=== PATIENT | female | born 1945 | race Caucasian/White ===

== ENCOUNTER 2017-07-20 10:24 | Outpatient (CLI) | payer MEDICARE, MEDICAID ==
--- NOTE | 2017-07-20 14:27 | MRI ---
BRAIN MRI WITH AND WITHOUT CONTRAST: 07/20/2017 HISTORY: Left hearing loss. Pain. COMPARISON: None. TECHNIQUE: Multiplanar, multisequence MR imaging of the brain obtained with and without contrast, using an inter nal auditory canal protocol. FINDINGS: The diffusion weighted imaging demonstrates no evidence for acute infarction. There is mucosal sinus disease involving the alveolar recess of the maxillary sinus on the right. Imaged paranasal sinuses are otherwise unremarkable. Regional bone marrow signal intensity appears within normal limits. No midline shift, mass effect, or ventricular enlargement is seen. Numerous foci of increased T2 and FLAIR signal are noted within the periventricular, deep, and subcor tical white matter, evidence of small vessel disease. There is abnormal crescentic increased FLAIR signal within the posterior/posteromedial aspect of the globe. Of note, the globe has demonstrated abnormal density on CT examinations dating back to 2012. Clinical correlation is required. This could be related to prior ocular injury or prior retinal det achment. Arterial flow voids at the axial level of the skull base appear unremarkable on the T2 weighted imagi ng. Thin section T2-weighted imaging through the skull base demonstrates normal T2 signal intensity in th e region of the CP angle bilaterally. The internal auditory canal, cochlear, vestibule, and semicirc ular canals demonstrate normal T2 signal bilaterally. The mastoid air cells are grossly unremarkable, aside from a few inferior opacified mastoid air cells on the left. Thin section post contrast imaging demonstrates no abnormal enhancement in the region of the cerebell opontine angle, internal auditory canal, cochlea, vestibule, or semicircular canals on either side. No abnormal intraaxial enhancement seen. IMPRESSION: No acute findings. There is an abnormal appearance of the right globe, chronic in nature. Clinical correlation is required. There is evidence of small vessel disease with no acute infarction noted. POS: [facility]
== END 2017-07-20 10:25 | disposition home or self-care (01) ==
LOC: MRI 10:24
PROVIDERS: ATTEND Otolaryngology Plastic Surgery within the Head & Neck
DX: R27.0 Ataxia, unspecified (principal); I67.9 Cerebrovascular disease, unspecified
CPT/HCPCS: 70553

== ENCOUNTER 2017-08-08 09:50 | Outpatient (CLI) | payer MEDICARE, MEDICAID | END 2017-08-08 09:51 | disposition home or self-care (01) | LOC: MAMMO 09:50 | PROVIDERS: ATTEND Internal Medicine | DX: Z12.31 Encounter for screening mammogram for malignant neoplasm of breast (principal) | CPT/HCPCS: 77067; G0202 ==

== ENCOUNTER 2017-09-08 12:31 | Inpatient (IN) | payer MEDICARE, MEDICAID ==
--- NOTE | 2017-09-08 13:24 | RAD ---
PORTABLE CHEST 1 VIEW: DATE: 09/08/17. TIME: 12:54 p.m. HISTORY: Syncope. FINDINGS: The heart size is enlarged. The aorta is tortuous. No lobar consolidation, pneumothoraces, jeanette pu lmonary edema, or pleural effusions are seen. POS: [facility]
[2017-09-08 13:26] LABS: #Eosinphils 0.4 thou/uL (0.0-0.7); #Lymphocytes 1.5 thou/uL (1.20-3.40); #Monocytes 0.6 thou/uL (0.11-0.59); #Neutrophils 4.3 thou/uL (1.40-6.50); %Basophils 0.7 % (0.0-1.0); %Eosinophils 6.3 % (0.0-10.0); %Lymphocytes 22.1 % (21.0-51.0); %Monocytes 8.5 % (0.0-10.0); %Neutrophils 62.4 % (42.0-75.0); Hemoglobin 12.9 g/dL (12.0-16.0); Mean Corpuscular HGB CONC 32.6 g/dL (32.0-36.0); Mean Corpuscular Hemoglobin 32.5 pg (27.0-31.0); Mean Corpuscular Volume 99.7 fl (81.0-99.0); Mean Platelet Volume 8.1 fL (7.4-10.4); Platelet Count 215 thou/uL (130-400); RBC Distribution Width 11.6 % (11.5-14.5); Red Blood Cell (RBC) Count 3.96 mill/uL (4.20-5.40); White Blood Cell (WBC) Count 6.8 thou/uL (4.8-10.8)
[2017-09-08 13:54] LABS: CKMB 1.1 ng/mL (0-6.6); Troponin I Less than 0.010 ng/mL (< 0.028)
[2017-09-08 13:59] LABS: ALT (SGPT) 16 U/L (8-55); AST (SGOT) 22 U/L (5-34); Albumin 3.7 g/dL (3.4-4.8); Alkaline Phosphatase 75 U/L (40-150); Anion Gap 12 mmol/L (10-20); BUN (Urea Nitrogen) 22 mg/dL (9.8-20.1); Bilirubin, Total 0.4 mg/dL (0.2-1.2); CK (CPK) 41 U/L (29-168); Calc. Creatinine Clearance 0 mL/min (70-130); Calcium 9.5 mg/dL (7.8-10.44); Carbon Dioxide 29 mmol/L (23-31); Chloride 103 mmol/L (98-107); Estimated GFR-MDRD 46; Globulin 3.4 g/dL (2.4-3.5); Glucose 106 mg/dL (83-110); Potassium 4.3 mmol/L (3.5-5.1); Protein, Total 7.1 g/dL (6.0-8.3); Sodium 140 mmol/L (136-145)
[2017-09-08 14:01] LABS: Bilirubin Small (Negative); Blood, Urine Negative (Negative); Clarity CLEAR (Clear); Glucose, Urine (Dipstick) Negative (Negative); Leukocyte Small (Negative); Nitrite Negative (Negative); Protein, Urine (Dipstick) Negative (Neg-Trace); Specific Gravity, Urine 1.026 (1.002-1.036)
[2017-09-08 14:03] LABS: Bacteria/HPF None Seen HPF (None Seen); Hyaline Casts/LPF 4-6 HYALINE CAST LPF (0-3 Hyaline); RBC/HPF 0-3 HPF (0-3); Squamous Epithelial 0-3 HPF (0-3); WBC/HPF 0-3 HPF (0-3)
[2017-09-08 14:15] LABS: Crystals/HPF None Seen HPF (Negative)
[2017-09-08] MEDS ORDERED: Ondansetron HCl/PF 4 MG/2 ML Vial IVP PRN (16:24)
[2017-09-08] MEDS ORDERED: HumaLOG 300 UNITS/3 ML VIAL SC PRN (16:24)
[2017-09-08] MEDS ORDERED: Acetaminophen 325 MG TAB PO PRN (16:24)
[2017-09-08] MEDS ORDERED: HYDROcodone/Acetaminophen 5/325 mg Tablet PO PRN (16:24)
[2017-09-08] MEDS ORDERED: Nitroglycerin 0.4 MG TAB (25 Tab Bottle) SL PRN (16:24)
[2017-09-08] MEDS ORDERED: Dextrose 50% Abboject 50 ML SYRINGE SLOW IVP PRN (16:24)
[2017-09-08] MEDS ORDERED: hydrALAZINE 20 MG/ML VIAL SLOW IVP PRN (16:24)
[2017-09-08] MEDS ORDERED: Dextrose 5% in Water 1,000 ML IV PRN (16:24)
[2017-09-08] MEDS ORDERED: Calcium Carbonate 500 MG ChewTAB PO PRN (16:24)
[2017-09-08] MEDS ORDERED: Benzonatate 100 MG CAP PO PRN (16:24)
[2017-09-08 16:44] VITALS: BMI 25.4
--- NOTE | 2017-09-08 17:09 | HP ---
CHIEF COMPLAINT: Syncopal episode. HISTORY OF PRESENT ILLNESS: This is a 72-year-old pleasant lady who was apparently in usual state of health when she was getting out of the car, felt dizzy and was feeling that she was going down. She had a sense of that she was going to black out. She yelled to her who caught her and she perez d passed out for a few seconds. She immediately gained her consciousness and she was brought to the hospital for further evaluation and treatment. Denies any nausea, vomiting, chest pain, diarrhea, or dysuria. Admits to some dizziness, but she says that she has got chronic dizziness because of the p roblems of the otolith in the ear. She had an MRI and is being followed up by the doctor as an outpa tient for the treatment of that as well. Right now, she denies any chest pain, shortness of breath, dizziness or palpitations. Of note, she also has enrolled into a study for C. diff and she gets her injection once in 3 months. She is enrolled about 9 months back and she is due for the third injecti on in about a week. Right now, she is going to be admitted for the evaluation and treatment of the s ymptomatic bradycardia as the heart rate was in the 40s when she came in. PAST MEDICAL HISTORY: Significant for some chronic diarrhea, diabetes mellitus, hypertension, atrial fibrillation. ALLERGIES: No known drug allergies. PAST SURGICAL HISTORY: Cholecystectomy and hysterectomy. SOCIAL HISTORY: Does not smoke, drink or do recreational drugs. MEDICATIONS: Family is going to bring the medication list. Please see MAR. FAMILY HISTORY: Negative for diabetes and hypertension. REVIEW OF SYSTEMS: Significant for bradycardia, syncopal episode. Otherwise, no fever, no chills, n o headache, no appetite, no latencies. No cough, no chest pain, diarrhea, dysuria or polyuria. No m jaylyn or mood changes. No neck pain. PHYSICAL EXAMINATION: VITAL SIGNS: Blood pressure is 109/61, pulse is 49, breathing comfortably on room air, afebrile. GENERAL: Patient is lying in bed in no apparent distress. HEENT: Atraumatic and normocephalic. Pupils equal, round, react to light. Extraocular movements in tact. Chronic changes in the right eye. She is blind in the right eye. NECK: No JVD. CHEST: Breath sounds. There are no rales or rhonchi. HEART: S1, S2 normal, bradycardic. ABDOMEN: Soft, obese. EXTREMITIES: No cyanosis, clubbing, edema. Distal pulses present. NEUROLOGIC: Alert, awake, oriented. No cranial deficits. No sensorimotor deficits. LABORATORY DATA: WBC count is 6.8, hemoglobin 12. Chest x-ray negative. Troponin 0.01, potassium 4 .3, creatinine 1.15. Chest x-ray negative. ASSESSMENT AND PLAN: 1. Symptomatic bradycardia giving rise to syncopal episode. We will review medications once the hus band brings it. We will put her on telemetry for now. We will consult Cardiology. We will trend tr oponins. 2. Diabetes mellitus. We will put her on insulin sliding scale. 3. Hypertension, p.r.n. hydralazine for now. 4. History of paroxysmal atrial fibrillation. We will monitor that this hospital stay. some vague history of chronic diarrhea. We will go over the research study she is enrolled into. I will work with Dr. Correia in further caring for the patient.
[2017-09-08 17:14] LABS: Troponin I Less than 0.010 ng/mL (< 0.028)
[2017-09-08] MEDS: Sodium Chloride 0.9% 1,000 ML IV SCH (17:33)
[2017-09-08 17:47] LABS: Bilirubin Negative (Negative); Blood, Urine Negative (Negative); Clarity CLEAR (Clear); Glucose, Urine (Dipstick) Negative (Negative); Leukocyte Small (Negative); Nitrite Negative (Negative); Protein, Urine (Dipstick) Negative (Neg-Trace); Specific Gravity, Urine 1.016 (1.002-1.036)
[2017-09-08 17:52] LABS: Bacteria/HPF None Seen HPF (None Seen); Hyaline Casts/LPF 0-3 HYALINE CAST LPF (0-3 Hyaline); RBC/HPF 0-3 HPF (0-3); Squamous Epithelial None Seen HPF (0-3); WBC/HPF 0-3 HPF (0-3)
[2017-09-08 19:42] LABS: Troponin I Less than 0.010 ng/mL (< 0.028)
--- NOTE | 2017-09-08 20:31 | CON ---
DATE OF CONSULTATION: 09/08/2017 REASON FOR CONSULTATION: Syncope. HISTORY OF PRESENT ILLNESS: Mrs. Louise is a very pleasant 72-year-old white female who comes to [facility] after a syncopal spell. She was walking into her doctor's office, Dr. Lopez and s he felt faint, she felt she was about to pass out and told her . Her was able to catc h her. She was out for about 2 or 3 seconds and then she regained her consciousness. She was fully awake after she had regained her consciousness. 911 was called and on their arrival, her heart was a bout 48. She was wide awake and asymptomatic. She was brought in, her heart rate has remained in [facility] mid 50s. She has a history of paroxysmal atrial fibrillation, sees a debt collector in [place] for t his, and she is on amiodarone and Eliquis for stroke prophylaxis. She states that she had this happe n about 2 years ago, she had a syncopal spell. She had another spell right about 2 months ago where she was presyncopal, but not completely passed out. PAST MEDICAL HISTORY: 1. Paroxysmal atrial fibrillation on Eliquis for stroke prophylaxis. 2. Chronic diarrhea. 3. Type 2 diabetes. 4. Hypertension. ALLERGIES: No known drug allergies. OUTPATIENT MEDICATIONS: 1. Aspirin 81 a day. 2. Tylenol #3 p.r.n. 3. Iron. 4. Amiodarone 100 mg every other day. 5. Vitamin D3. 6. Valsartan 320 mg a day. 7. Multivitamin. 8. Crestor 10 mg every day. 9. Eliquis 5 mg b.i.d. 10. Metformin 500 mg b.i.d. 11. Levothyroxine 88 mcg a day. 12. Nexium daily. ALLERGIES: No known drug allergies. SOCIAL HISTORY: No alcohol, tobacco or drugs. FAMILY HISTORY: Noncontributory. REVIEW OF SYSTEMS: The 12-point review of systems was negative, unless stated in the history of pres ent illness. PHYSICAL EXAMINATION: VITAL SIGNS: Temperature 97.8, pulse 64, respiration rate 20, satting 93% on room air, blood pressur e 119/50 supine, 122/63 sitting, and 113/64 standing. She is not orthostatic. GENERAL: Awake, alert, oriented x3, in no distress. HEENT: Normocephalic and atraumatic. She has a lesion on her right eye, is blind on it. NECK: Supple, no JVD. LUNGS: Lungs are clear. CARDIOVASCULAR: S1, S2, no S3 or S4, no murmurs or rubs. ABDOMEN: Soft, positive bowel sounds. EXTREMITIES: No edema. SKIN: Warm and dry. LABORATORY WORK: Reviewed. UA was unremarkable. Chemistry was unremarkable except for BUN of 22, c reatinine 1.15. Troponin is negative x2. Hematology was unremarkable as well. EKG was reviewed, sinus bradycardia with heart rate in the mid 50s. Telemetry was reviewed, sinus bradycardia, heart rate in the mid 50s to low 60s. ASSESSMENT AND PLAN: 1. Syncope: May have been related to bradycardia and she may have tachybrady syndrome at this time. I have no clear evidence of the reason why she passed out. We will plan on stopping her amiodarone . She is only taking it 100 every other day which tells me that she has had problems with probably b radycardia in the past. She will need a home monitor and if her atrial fibrillation burden is high a nd/or she is having bradycardia, then she will need a pacemaker placed. At this time, she is on Eliq uis, so I will hold off on doing a LINQ implantation. We may be able to find something on a 30-day r ecorder; she had it last about 2 months ago. I will recommend to stop the amiodarone today. Continu e other medications. Continue Eliquis. If she were to pass out one more time in the next few weeks to months, she would have to stop the Eliquis that she is a fall risk. Echocardiogram will be done and if this is normal, she will be discharged home to follow up with her primary debt collector. Thank you for letting us participate in the care of your patient.
[2017-09-09 06:03] LABS: #Basophils 0.1 thou/uL (0.0-0.2); #Eosinphils 0.4 thou/uL (0.0-0.7); #Lymphocytes 1.8 thou/uL (1.20-3.40); #Monocytes 0.6 thou/uL (0.11-0.59); #Neutrophils 4.3 thou/uL (1.40-6.50); %Basophils 0.9 % (0.0-1.0); %Eosinophils 6.2 % (0.0-10.0); %Lymphocytes 24.8 % (21.0-51.0); %Monocytes 8.2 % (0.0-10.0); %Neutrophils 59.9 % (42.0-75.0); Hemoglobin 12.1 g/dL (12.0-16.0); Mean Corpuscular Hemoglobin 32.5 pg (27.0-31.0); Mean Corpuscular Volume 98.7 fl (81.0-99.0); Mean Platelet Volume 8.5 fL (7.4-10.4); Platelet Count 198 thou/uL (130-400); RBC Distribution Width 11.6 % (11.5-14.5); Red Blood Cell (RBC) Count 3.71 mill/uL (4.20-5.40); White Blood Cell (WBC) Count 7.2 thou/uL (4.8-10.8)
[2017-09-09 06:21] LABS: Anion Gap 11 mmol/L (10-20); BUN (Urea Nitrogen) 19 mg/dL (9.8-20.1); Calc. Creatinine Clearance 53 mL/min (70-130); Calcium 9.1 mg/dL (7.8-10.44); Carbon Dioxide 27 mmol/L (23-31); Chloride 105 mmol/L (98-107); Estimated GFR-MDRD 55; Glucose 92 mg/dL (83-110); Potassium 4.1 mmol/L (3.5-5.1); Sodium 139 mmol/L (136-145)
[2017-09-09] MEDS: Sodium Chloride 0.9% 1,000 ML IV SCH (09:19)
[2017-09-09 12:09] VITALS: TEMP 98.6
--- NOTE | 2017-09-09 14:45 | PDOC.PN ---
- Subjective Encounter Start Date: 09/09/17 Encounter Start Time: 14:43 Patient seen and examined. No new complaints. No overnight events - Objective MAR Reviewed: Yes Vital Signs & Weight: Vital Signs (12 hours) Temp Pulse Resp BP Pulse Ox 09/09/17 11:28 98.6 F 71 18 126/71 94 L 09/09/17 08:30 98.5 F 54 L 16 09/09/17 07:35 98.5 F 54 L 16 116/70 94 L 09/09/17 04:50 98.1 F 64 16 141/65 H 95 Weight Weight 145 lb 6.4 oz I&O: 09/08/17 09/09/17 09/10/17 06:59 06:59 06:59 Intake Total 1045 Output Total 800 450 Balance 245 -450 Result Diagrams: 09/09/17 05:24 09/09/17 05:24 Additional Labs: Accuchecks 09/09/17 09/09/17 09/08/17 10:39 05:29 21:37 POC Glucose 88 90 124 H 09/08/17 17:10 POC Glucose 101 Phys Exam - Physical Examination Constitutional: NAD HEENT: PERRLA Neck: no JVD Respiratory: no rhonchi Cardiovascular: irregular Gastrointestinal: non-tender Musculoskeletal: pulses present Neurological: moves all 4 limbs Psychiatric: A&O x 3 Dx/Plan (1) Symptomatic bradycardia Code(s): R00.1 - BRADYCARDIA, UNSPECIFIED Status: Acute (2) Chronic diarrhea Code(s): K52.9 - NONINFECTIVE GASTROENTERITIS AND COLITIS, UNSPECIFIED Status : Acute (3) Diabetes mellitus Code(s): E11.9 - TYPE 2 DIABETES MELLITUS WITHOUT COMPLICATIONS Status: Acute (4) HTN (hypertension) Code(s): I10 - ESSENTIAL (PRIMARY) HYPERTENSION Status: Acute - Plan * f/u echo * card input appreciated
[2017-09-09] MEDS: metFORMIN 500 MG TAB PO SCH ×2 (15:18→19:01)
[2017-09-09 15:21] VITALS: BP 129/65
--- NOTE | 2017-09-09 16:54 | PDOC.CTH ---
Cardiology Progress Note - Subjective Doing well. no more episodes. - Objective Vital Signs Temp Pulse Resp BP BP Pulse Ox 09/09/17 15:19 98.6 F 60 18 129/65 95 09/09/17 11:28 98.6 F 71 18 126/71 94 L 09/09/17 08:30 98.5 F 54 L 16 09/09/17 07:35 98.5 F 54 L 16 116/70 94 L Weight 145 lb 6.4 oz 09/08/17 09/09/17 09/10/17 06:59 06:59 06:59 Intake Total 1045 Output Total 800 450 Balance 245 -450 - Physical Examination General/Neuro: alert & oriented x3, NAD Neck: no JVD present Lungs: unlabored respirations Heart: RRR Abdomen: NT/ND Extremities: + edema B (no edema.) - Telemetry Telemetry Rhythm: NSR, HR 60's. - Labs Result Diagrams: 09/09/17 05:24 09/09/17 05:24 Troponin/CKMB CK-MB (CK-2) 1.1 ng/mL (0-6.6) 09/08/17 13:08 Troponin I Less than 0.010 ng/mL (< 0.028) 09/08/17 19:11 - Assessment/Plan 1. Syncope. 2. Sinus bradycadia 3. Paroxysmal afib PLAN: - Will stop amiodarone - Continue Eliquis - Cut valsartan in half dose - Will send event monitor through the mail and will follow up in the office in 1 month. - May discharge home.
[2017-09-09] MEDS ORDERED: Apixaban 5 MG TAB PO SCH (21:00)
--- NOTE | 2017-09-10 00:48 | DIS ---
DATE OF ADMISSION: 09/08/2017 DATE OF DISCHARGE: 09/09/2017 DIAGNOSES ON DISCHARGE: Symptomatic bradycardia giving rise to syncopal episode; chronic conditions like chronic diarrhea, diabetes mellitus, hypertension, atrial fibrillation and hypothyroidism are al l stable. DISCHARGE MEDICATIONS: Include all home medications except for the discontinuation of the amiodarone and the dose of the valsartan has been cut by half. She was asked to take 160 mg p.o. daily. FILM PROCESS OPERATOR OF THE CASE: Moe Correia MD BRIEF HOSPITAL COURSE: A 72-year-old pleasant lady, who came into the hospital with syncopal episode . When she came in, she had a heart rate in 40s. Dr. Correia evaluated the patient, stopped the amio darone, heart rate has come up to 60s. Right now, she is doing much better. She is asymptomatic. E chocardiogram was done by Dr. Correia was normal as well. He recommended to stop the amiodarone and c ut the dose of the blood pressure medications by half. She is right now medically stable to be disch arged and is asked to follow up with Dr. Correia in a month. She is also asked to follow up with PCP in a month. Right now, she is medically stable to be discharged with outpatient followup, but then s he was asked to come back to the emergency room in case symptoms recur. Total time for this discharge took 35 minutes.
[2017-09-10] MEDS ORDERED: Levothyroxine Sodium 88 MCG TAB PO SCH (09:00)
[2017-09-10] MEDS ORDERED: Valsartan 80 MG TAB PO SCH (09:00)
[2017-09-10] MEDS ORDERED: Rosuvastatin 10 MG TAB PO SCH (09:00)
[2017-09-10] MEDS ORDERED: Aspirin 81 mg Enteric Coated Tablet PO SCH (09:00)
== END 2017-09-09 19:13 | disposition home or self-care (01) | DRG 310 ==
LOC: ERS 12:31 → 2SW 15:00 → OBSVTOIN 16:24
PROVIDERS: ADMIT Internal Medicine; ATTEND Internal Medicine
DX: R00.1 Bradycardia, unspecified (principal); E11.9 Type 2 diabetes mellitus without complications; E03.9 Hypothyroidism, unspecified; I10 Essential (primary) hypertension; I48.0 Paroxysmal atrial fibrillation; Z79.01 Long term (current) use of anticoagulants; Z79.84 Long term (current) use of oral hypoglycemic drugs; K52.9 Noninfective gastroenteritis and colitis, unspecified
CPT/HCPCS: 36415; 36416; 71045; 80048; 80053; 81003; 81015; 82553; 84484; 85025; 93005; 93306

== ENCOUNTER 2018-11-04 16:59 | Inpatient (IN) | payer MEDICARE ==
[2018-11-04] MEDS ORDERED: Diltiazem 125 MG/25 ML ONE (18:03)
[2018-11-04 18:14] LABS: #Lymphocytes 0.8 thou/uL (1.20-3.40); #Monocytes 0.3 thou/uL (0.11-0.59); #Neutrophils 10.8 thou/uL (1.40-6.50); %Eosinophils 0.3 % (0.0-10.0); %Monocytes 2.8 % (0.0-10.0); %Neutrophils 89.9 % (42.0-75.0); Hemoglobin 12.5 g/dL (12.0-16.0); Mean Corpuscular HGB CONC 32.8 g/dL (32.0-36.0); Mean Corpuscular Hemoglobin 31.7 pg (27.0-31.0); Mean Corpuscular Volume 96.5 fL (78.0-98.0); Mean Platelet Volume 8.8 fL (7.4-10.4); Platelet Count 157 thou/uL (130-400); RBC Distribution Width 11.6 % (11.5-14.5); Red Blood Cell (RBC) Count 3.96 mill/uL (4.20-5.40)
[2018-11-04 18:36] LABS: ALT (SGPT) 41 U/L (8-55); AST (SGOT) 75 U/L (5-34); Albumin 3.5 g/dL (3.4-4.8); Alkaline Phosphatase 93 U/L (40-150); Anion Gap 12 mmol/L (10-20); BUN (Urea Nitrogen) 15 mg/dL (9.8-20.1); Bilirubin, Total 0.3 mg/dL (0.2-1.2); Calc. Creatinine Clearance 0 mL/min (70-130); Calcium 8.5 mg/dL (7.8-10.44); Carbon Dioxide 22 mmol/L (23-31); Chloride 110 mmol/L (98-107); Estimated GFR-MDRD 43; Glucose 123 mg/dL (83-110); Lipase 32 U/L (8-78); Protein, Total 6.5 g/dL (6.0-8.3); Sodium 140 mmol/L (136-145)
--- NOTE | 2018-11-04 18:40 | RAD ---
AP VIEW CHEST 11/04/18 HISTORY: Syncope. AP view chest is obtained on 11/04/18. Comparison made to a previous exam from 09/08/17. AP view chest demonstrates a large hiatal hernia seen. Calcification of the aorta is seen. Mild pulmonary vascular congestion seen. No evidence of effusions , pneumonia or pneumothorax seen. There is bilateral shoulder arthritic changes seen. IMPRESSION: No evidence of acute intrathoracic abnormality seen. POS: [facility]
[2018-11-04 19:16] LABS: Bilirubin Negative (Negative); Blood, Urine Negative (Negative); Clarity CLEAR (Clear); Glucose, Urine (Dipstick) Negative (Negative); Leukocyte Negative (Negative); Nitrite Negative (Negative); Protein, Urine (Dipstick) Negative (Neg-Trace); Specific Gravity, Urine 1.008 (1.002-1.036); pH, Urine 5.5 (5.0-9.0)
[2018-11-04] MEDS ORDERED: Ondansetron PF 4 MG/2 ML Vial IVP PRN (19:49)
[2018-11-04] MEDS ORDERED: Ondansetron ODT 4 MG TAB PO PRN (19:49)
[2018-11-04] MEDS ORDERED: Dextrose 5% in Water 1,000 ML IV PRN (23:24)
[2018-11-04] MEDS ORDERED: Dextrose 50% Abboject 50 ML SYRINGE SLOW IVP PRN (23:24)
[2018-11-04] MEDS ORDERED: HumaLOG 300 UNITS/3 ML VIAL SC PRN (23:24)
[2018-11-05] MEDS: Apixaban 5 MG TAB PO SCH ×3 (01:03→21:48)
--- NOTE | 2018-11-05 01:54 | HP ---
PRIMARY CARE DOCTOR: Dr. Nam Lopez. CODE STATUS FOR THIS PATIENT: Full code. CHIEF COMPLAINT: "I passed out." HISTORY OF PRESENT ILLNESS: This is a 73-year-old male patient with past medical history of diabetes, hyperlipidemia, and hypertension, came to the hospital after having an episode of syncope. The symptoms were sudden, severe, no clear triggers. No alleviating factors. Loss of conscious was for about 10 minutes. This is the second this happened to the patient. Symptoms started when she was sitting on the chair. Recently, she was found to be in atrial fibrillation with RVR, was started on Cardizem drip for rate control. REVIEW OF SYSTEMS: CONSTITUTIONAL: No fever, chills, or generalized weakness. RESPIRATORY: No cough, sputum production, or shortness of breath. CARDIOVASCULAR: The patient had no chest pain. The patient did have palpitation. GASTROINTESTINAL: No nausea, vomiting, diarrhea, or abdominal pain. RN POOL: No dizziness, headache, or feeling lightheaded. The patient did have a syncope episode. GENITOURINARY: No burning on urination. EXTREMITIES: No leg swelling. All other systems were reviewed and negative except for the findings mentioned above. PAST MEDICAL HISTORY: Positive for atrial fibrillation, diabetes, hyperlipidemia, and hypertension. PAST SURGICAL HISTORY: Cholecystectomy and hysterectomy. PSYCHIATRIC HISTORY: No previous psych history. SOCIAL HISTORY: No alcohol. No drugs. No smoking history. FAMILY HISTORY: Reviewed, noncontributory for current presentation. KNOWN ALLERGIES: No known drug allergies. REPORTED MEDICATION: 1. Aspirin. 2. Valsartan. 3. Atorvastatin. 4. Levothyroxine. 5. Crestor. 6. Eliquis. 7. Campho-Phenic. PHYSICAL EXAMINATION: VITAL SIGNS: On presentation, blood pressure 94/61, heart rate 135, respiratory rate was 18, temperature 98, pain was zero, and oxygen saturation was 98% on room air. Blood pressure has remained stable. GENERAL APPEARANCE: The patient is alert, oriented, not in acute distress. HEAD: Eyes, normal conjunctivae. Moist oral mucosa. Anicteric. No JVD. The patient has old right eye vision loss. RESPIRATORY: Bilateral air entry. No rales. No wheezing. Symmetric expansion. CARDIOVASCULAR: The patient has irregular rhythm, tachycardia. No murmurs. No gallop. No edema. ABDOMEN: Soft, normal bowel sounds. MUSCULOSKELETAL: Baseline range of motion and strength. No tenderness. SKIN: Warm, intact. No pallor. No rash. No redness. Peripheral pulses are present. Capillary refill seems to be intact. NEUROLOGIC: No evidence of any new focal weakness. Baseline speech. Cranial nerves seems to be intact. PSYCHIATRIC: The patient is in good mood. No anxiety. Optimal judgment. IMAGING STUDIES: EKG was reviewed. The patient had atrial fibrillation with RVR, low QRS at the rate of 133, QRS 78, and QT corrected 523. Chest x-ray was reviewed. The patient had no evidence of acute intrathoracic abnormalities were seen. LABORATORY DATA: Labs were reviewed. The patient has white count 12, hemoglobin 12.5, MCV 96.5, and platelet count 157. Chemistry; sodium 140, potassium 4.0, chloride 110, carbon dioxide was 22, anion gap 12, BUN 15, creatinine 1.22, GFR 43, glucose 123, and calcium 9.5. Total bilirubin 0.3, AST 75, ALT 41, and alkaline phosphatase 193. Troponin was negative. Beta natriuretic peptide 395. UA was negative. ASSESSMENT AND PLAN: The patient is placed in the hospital with following medical problems; 1. Syncope, the patient will receive an echo, carotid Doppler, it also might be related to underlying atrial fibrillation with rapid ventricular response. We will consult Cardiology and follow recommendations. 2. Atrial fibrillation with rapid ventricular response. The patient is on diltiazem drip, we will adjust treatment to control rate. The patient was started on Eliquis. We will continue for now. The patient also has a history of diabetes, hyperlipidemia, hypertension, so we will need anticoagulation for stroke prevention. 3. Uncontrolled hypertension. The patient was hypotensive occasionally. The patient is on Cardizem drip. We will reconcile home medications. We will adjust as needed. 4. Hyperlipidemia, low-cholesterol diet is advised. Reconcile home medications. 5. Uncontrolled diabetes. Blood sugar 123, mildly elevated, reconcile home medications. We will place the patient on sliding scale for optimal control. DVT prophylaxis Job ID: [id number] [facility]
[2018-11-05] MEDS: Levothyroxine Sodium 88 MCG TAB PO SCH (05:31)
[2018-11-05 07:46] LABS: #Eosinphils 0.1 thou/uL (0.0-0.7); #Lymphocytes 1.7 thou/uL (1.20-3.40); #Monocytes 0.5 thou/uL (0.11-0.59); %Basophils 0.3 % (0.0-1.0); %Eosinophils 1.1 % (0.0-10.0); %Lymphocytes 23.2 % (21.0-51.0); %Monocytes 7.4 % (0.0-10.0); %Neutrophils 68.1 % (42.0-75.0); Hemoglobin 10.9 g/dL (12.0-16.0); Mean Corpuscular HGB CONC 32.4 g/dL (32.0-36.0); Mean Corpuscular Hemoglobin 31.1 pg (27.0-31.0); Mean Corpuscular Volume 96.1 fL (78.0-98.0); Platelet Count 131 thou/uL (130-400); RBC Distribution Width 11.7 % (11.5-14.5); White Blood Cell (WBC) Count 7.4 thou/uL (4.8-10.8)
[2018-11-05 08:05] LABS: Anion Gap 12 mmol/L (10-20); BUN (Urea Nitrogen) 12 mg/dL (9.8-20.1); Calc. Creatinine Clearance 70 mL/min (70-130); Calcium 8.6 mg/dL (7.8-10.44); Carbon Dioxide 20 mmol/L (23-31); Chloride 113 mmol/L (98-107); Estimated GFR-MDRD 71; Glucose 96 mg/dL (83-110); Potassium 3.9 mmol/L (3.5-5.1); Sodium 141 mmol/L (136-145)
[2018-11-05] MEDS: Aspirin 81 mg Enteric Coated Tablet PO SCH (09:25)
--- NOTE | 2018-11-05 11:19 | PRG ---
DATE OF SERVICE: 11/05/2018 SUBJECTIVE: The patient is seen and examined at bedside. She is legally blind. There was no any unexpected events overnight. OBJECTIVE: VITAL SIGNS: Blood pressure is 102/68, pulse is 90, respiratory rate 18, pulse oximetry is 92% on room air. HEENT: Head is atraumatic and normocephalic. She has a birthmark around her right church and right eye. 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 Oral mucosa is moist. NECK: Supple. LUNGS: Clear. HEART: S1, S2. Irregularly irregular. No S3. No S4. ABDOMEN: Soft, nontender. Bowel sounds are present. No organomegaly. EXTREMITIES: No clubbing, cyanosis, or edema. NEUROLOGICAL: She follows my commands. She moves all four extremities. There is no any motor deficits. LABORATORY DATA: Labs showed white count of 7.4, hemoglobin 10.9, hematocrit 33.6, platelet count 131. Sodium 141, potassium 3.9, chloride 113, CO2 of 20, creatinine 0.79, glucose 96, BNP 395.9 from yesterday and troponin was 0.010. IMPRESSION: 1. Syncopal episode of unclear etiology at this time. The patient is scheduled for echo and carotid Doppler and Cardiology consultation. She had syncope in the past x1. 2. Atrial fibrillation with rapid ventricular response. According to her, this is recurrent. 3. Uncontrolled hypertension. The patient was hypotensive at the time of admission. Her blood pressure is borderline at this moment. This is most likely related to her Cardizem drip she is on now. 4. Hyperlipidemia. 5. Diabetes mellitus. 6. Legally blind patient. 7. Renal insufficiency, improved. 8. Normocytic anemia. 9. Hypothyroidism. PLAN: Plan is to continue her IV Cardizem drip. Her ventricular rate is controlled at this time. Continue her Eliquis 5 mg twice a day and aspirin 81 mg a day. The patient is scheduled to have cardiac Doppler and echocardiogram and to be seen by Dr. Hopkins for Cardiology consultation today. I will continue her rosuvastatin, pantoprazole, levothyroxine, and Tylenol No. 3. p.r.n. for the pain. Obtain fecal occult blood test on her stool and repeat cardiac enzymes x1. Job ID: [id number]
[2018-11-05 12:11] LABS: Hemoglobin 11.2 g/dL (12.0-16.0)
--- NOTE | 2018-11-05 15:49 | CON ---
DATE OF CONSULTATION: 11/05/2018 SERVICE: Pulmonary Medicine REASON FOR CONSULT: [facility] patient. HISTORY OF PRESENT ILLNESS: The patient is a 73-year-old white female with past medical history significant for atrial fibrillation. This was a year and a half ago. She was put in the hospital because of a syncopal spell. She was discovered to have atrial fibrillation with RVR. She got rate controlled and actually converted back to sinus rhythm. She was put on a p.o. medication, which was discontinued in the outpatient setting about a year ago. Either way, she was in her usual state of health until about an hour prior to a syncopal event. She started having some dyspnea that limited her activity, particularly when she was making the bed. She got a little bit dizzy and lightheaded. She sat down. After sitting down, she told her that she thought she was going to pass out. She passed out. He helped her to the ground. She did not injure herself. She was completely unresponsive for a period of about 5 minutes. Then, she kind of started to wake up. At that point, she had no vision. Her vision started to slowly improve over a period of about 5 minutes. She is brought to the emergency department and discovered to be back in atrial fibrillation with RVR. Prior to this event, she did not have any fevers, chills, cough, sputum production, nausea, vomiting, diarrhea, chest discomfort or belly pain. PAST MEDICAL HISTORY: 1. Atrial fibrillation. 2. Type 2 diabetes mellitus. 3. Hypertension. 4. Dyslipidemia. PAST SURGICAL HISTORY: 1. Cholecystectomy. 2. Hysterectomy. SOCIAL HISTORY: Negative for alcohol, tobacco or illicit drug use. She has no exposure to chemicals, dust, asbestos or tuberculosis. FAMILY HISTORY: Noncontributory. ALLERGIES: NO KNOWN DRUG ALLERGIES. MEDICATIONS: List of her inpatient medications was reviewed. No specific updates were made at this time. REVIEW OF SYSTEMS: General, head, ears, eyes, nose, throat, cardiovascular, respiratory, GI, , musculoskeletal, neurologic, and skin are negative except as mentioned is the HPI. PHYSICAL EXAMINATION: VITAL SIGNS: Afebrile, pulse 96, blood pressure 96/77, respirations 23, and saturation 100% on room air. GENERAL: The patient is awake and alert, in no apparent distress. LUNGS: Very good air entry with no prolonged expiratory phase. Dependent crackles are minimal. No wheezing, rhonchi are present. HEART: Normal rate. Irregular. ABDOMEN: Soft, nontender, and nondistended. Bowel sounds are positive. MUSCULOSKELETAL: No cyanosis or clubbing. No pitting in the bilateral lower extremities. NEUROLOGIC: Grossly nonfocal. LABORATORY DATA: Hemoglobin 11.2. Basic metabolic profile is essentially unremarkable. Troponin is gently up trending to 0.015. BNP was 395 on presentation. Liver function studies are otherwise unremarkable. Urinalysis is essentially unremarkable. IMAGING: Chest x-ray demonstrates no acute cardiopulmonary abnormality. Large hiatal hernia is noted. ASSESSMENT: 1. Acute hypoxic respiratory failure, resolved. 2. Syncope. 3. Atrial fibrillation with rapid ventricular rate, currently rate controlled. 4. Large hiatal hernia. DISCUSSION AND PLAN: The patient is currently euvolemic. I will back off her Lasix. We will continue rate control medications through time. Hopefully, we will get her to convert back into sinus rhythm. Cardiology consultation is once again pending. Pulmonary and Critical Care will continue to follow along while she remains in this location, but from my perspective, she is stable for transition to the floor. 70 minutes have been devoted to this patient in various activities. I personally reviewed all imaging studies and laboratory data noted within this document. For fifty percent of this time, I was interacting with the patient at the bedside or coordinating care with the care team. For the remainder of the time I was immediately available to the patient in the hospital unit. Job ID: [id number] MTDD
[2018-11-05] MEDS: Diltiazem HCl 125 MG, Admixture Fee 1 EACH in Sodium Chloride 0.9% 100 ML IVPB SCH (16:11)
--- NOTE | 2018-11-05 17:04 | ULT ---
CAROTID DOPPLER ULTRASOUND EVALUATION: 11/05/2018 HISTORY: Syncope. TECHNIQUE: Multiple longitudinal and transverse images of the carotid arteries obtained, using a Multi-Hertz tita ear array transducer. FINDINGS: Real-time, color-flow, and spectral wave-form Doppler analysis shows the right common carotid artery to demonstrate no definite evidence of masses or lesions. In the right ICA and ECA, distal flow is n ot visualized. This is concerning for complete occlusion of the right ICA and ECA. Correlation with CT angiography may be of use. The left common carotid, internal carotid, and external carotid arteries are patent. Antegrade flow is seen in both vertebral arteries. 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 Correlate and conf irm with CT angiography. POS: SARITA
[2018-11-05] MEDS: Acetaminophen/Codeine 30-300mg Tablet PO PRN (18:43)
[2018-11-05] MEDS: Rosuvastatin 10 MG TAB PO SCH (21:48)
--- NOTE | 2018-11-06 00:03 | CON ---
DATE OF CONSULTATION: HISTORY OF PRESENT ILLNESS: Jahaira Louise is a 73-year-old white female, who has been evaluated by Dr. Correia in September 2017. At that time, she was admitted with a syncopal episode. Previous to that, she had atrial fibrillation and was evaluated by ems helicopter pilot in [place]. She was on amiodarone except very low dose with 100 mg every other day. It was felt that her syncopal episode was probably due to bradycardia since her heart rate was 48 per minute and amiodarone was discontinued. She has done fairly well until yesterday when she was making her bed, she felt somewhat short of breath. She sat down to rest and then apparently had a syncopal episode. She was out approximately 5 minutes, and when she came to and had difficulty with her vision, but this gradually returned after another 3 or 4 minutes. She denies any chest discomfort. The ambulance was called. She was found to have atrial fibrillation with rapid ventricular response. PAST MEDICAL HISTORY: History of 2 syncopal episodes, episodes of atrial fibrillation, diabetes, hyperlipidemia, hypertension. PAST SURGICAL HISTORY: Cholecystectomy and hysterectomy. MEDICATIONS: 1. Eliquis 5 mg daily. 2. Niacin 500 mg at bedtime. 3. Levothyroxine 88 mcg daily. 4. Crestor 10 daily. 5. Valsartan/hydrochlorothiazide 320/12.5 daily. ALLERGIES: NONE. SOCIAL HISTORY: She does not smoke or drink. FAMILY HISTORY: Unremarkable. REVIEW OF SYSTEMS: A 12-point review of systems is unremarkable. PHYSICAL EXAMINATION: VITAL SIGNS: Blood pressure 117/73, pulse 93, atrial fibrillation on the monitor. HEENT: Large birthmark on the right side of her face. She is blind in the right eye. CHEST: Clear. CARDIAC: S1 and S2 normal without any S3, S4, or murmurs. ABDOMEN: Normal bowel sounds without tenderness or organomegaly. EXTREMITIES: Revealed no clubbing, cyanosis, or edema. SKIN: Warm and dry. NEUROLOGICAL: Grossly intact. LABORATORY DATA: EKG revealed atrial fibrillation with fast ventricular response of 133 per minute, low-voltage QRS, poor R-wave progression. Hemoglobin 11.2, hematocrit 34.4. Sodium 141, potassium 3.9, chloride 113, carbon dioxide 20, BUN 12, creatinine 0.79. BNP 395.9. Troponin I is normal. TSH is high at 9.1633. IMPRESSION: 1. Second syncopal episode. During her last hospitalization, she was found to be somewhat bradycardic and low-dose amiodarone 100 mg every other day was stopped. Apparently, a monitor was to be sent to her, but she states last time she wore a monitor was 2-1/2 years ago. 2. Paroxysmal atrial fibrillation. 3. Hypertension. 4. Hypercholesterolemia. 5. Diabetes. PLAN: Ms. Louise probably will require a pacemaker. Then, she will be placed on antiarrhythmics to suppress her atrial fibrillation. I will discontinue her Eliquis, instead place her on Lovenox, and she will be re-evaluated by Dr. Correia in the morning. Job ID: [id number] [facility]
[2018-11-06] MEDS: Levothyroxine Sodium 88 MCG TAB PO SCH (06:04)
[2018-11-06] MEDS: Aspirin 81 mg Enteric Coated Tablet PO SCH (08:24)
[2018-11-06] MEDS: Enoxaparin Sodium 80 MG/0.8 ML SYRINGE SC SCH ×2 (08:24→20:57)
--- NOTE | 2018-11-06 11:04 | PRG ---
DATE OF SERVICE: 11/06/2018 SUBJECTIVE: The patient is seen and examined at the bedside. She is feeling somewhat better. She did not have any unexpected events overnight. OBJECTIVE: VITAL SIGNS: Blood pressure is 116/61, pulse is 87, temperature 97.9, respirations 16, and O2 saturation is 97% on room air. HEENT: Head is atraumatic and normocephalic. She is legally blind. Oral mucosa is moist. NECK: Supple. LUNGS: Breath sounds somewhat diminished at both bases. HEART: S1 and S2, irregularly irregular. No S3. No S4. ABDOMEN: Soft and nontender. EXTREMITIES: No clubbing, cyanosis, or edema.. NEUROLOGIC: She follows my commands. She moves all four extremities. There is no any motor or sensory deficits present. Cranial nerves are intact. LABORATORY DATA: Labs showed glycemia of 86. Yesterday, followup hemoglobin was 11.2 and hematocrit was 34.4. Guaiac on her stool is not done yet. Echocardiogram showed LVEF was estimated at 50% to 55%. There is mildly dilated left atrium. There is moderate mitral regurgitation and [id number] tricuspid regurgitation. IMPRESSION: 1. Recurrent syncope. 2. Atrial fibrillation with rapid ventricular response. 3. Uncontrolled hypertension with hypotensive episode. 4. Hyperlipidemia. 5. Diabetes mellitus. 6. Legally blind patient. 7. Renal insufficiency, improved. 8. Normocytic anemia. Her hemoglobin level is stable. We are waiting for fecal occult blood test to be done. 9. Hypothyroidism. DISCUSSION: The patient is on IV Cardizem drip. The patient was seen by Dr. Hopkins yesterday, who switch her to Lovenox from apixaban and the patient is going to be seen by her solderer furnace, Dr. Correia. He will make decision about further management of her atrial fibrillation. Her rate is controlled on 5 mg of Cardizem IV drip. For now, we will continue the current regimen until Cardiology makes further recommendation. Job ID: [id number]
--- NOTE | 2018-11-06 17:22 | PRG ---
DATE OF SERVICE: 11/06/2018 SERVICE: Pulmonary Medicine. INTERVAL HISTORY: The patient is doing really well from respiratory standpoint. She had an episode of weakness today. That being said, she did not have any syncopal event. She did not get lightheaded, dizzy, nauseated, or vomit. She did not have any chest discomfort. This was very short-lived episode. Her diet is good. She is tolerating p.o. and she has no specific complaints. PHYSICAL EXAMINATION: VITAL SIGNS: Afebrile, pulse 86, blood pressure 123/66, respirations 16, saturation 98% on room air. GENERAL: The patient is awake and alert, in no apparent distress. LUNGS: Excellent air entry. There is no prolonged expiratory phase or wheezing present. HEART: Normal rate. Irregular. ABDOMEN: Soft, nontender, and nondistended. Bowel sounds are positive. MUSCULOSKELETAL: No cyanosis or clubbing. No pitting in the bilateral lower extremities. NEUROLOGIC: Grossly nonfocal. LABORATORY DATA: Blood sugars ranged from 86 to 91. Urinalysis is unremarkable. IMAGING STUDIES: Echocardiogram demonstrates normal ejection fraction. Left atrium is mildly dilated, and there is moderate mitral regurgitation and moderate tricuspid regurgitation. ASSESSMENT: 1. Syncope, resolved. 2. Acute hypoxic respiratory failure, resolved. 3. Atrial fibrillation with rapid ventricular response, rate controlled. 4. Moderate tricuspid regurgitation and mitral regurgitation. 5. Hiatal hernia, large. DISCUSSION AND PLAN: The patient is doing really well from respiratory standpoint. She is going to go down for pacemaker tomorrow. At this point, she has no further requirements for inpatient Pulmonary or Critical Care opinion. I will sign off. Please call with additional questions or concerns through time. Job ID: [id number]
--- NOTE | 2018-11-06 17:48 | PDOC.CTH ---
Cardiology Progress Note - Subjective No new issues. - Objective Vital Signs Temp Pulse Resp BP BP Pulse Ox 11/06/18 16:00 97.9 F 74 16 104/68 97 11/06/18 11:14 98.4 F 86 16 123/66 98 11/06/18 07:45 97.9 F 87 16 116/61 97 Weight 153 lb 10.595 oz 11/05/18 11/06/18 11/07/18 06:59 06:59 06:59 Intake Total 292 Output Total 900 Balance -608 - Physical Examination General/Neuro: alert & oriented x3, NAD Neck: no JVD present Lungs: unlabored respirations Heart: other: (Irreg irreg) Abdomen: NT/ND Extremities: other: (no edema) - Telemetry Telemetry Rhythm: Afib HR 110-120's - Labs Result Diagrams: 11/05/18 11:45 11/05/18 06:58 Troponin/CKMB Troponin I 0.015 ng/mL (< 0.028) 11/05/18 11:45 - Assessment/Plan 1. Syncope. 2. Tachy boyd syndrome 3. Afib RVR 4. Braycardia while on AV armando blocking agents. PLAN: - We spoke about needing a pacemaker and she agrees to proceed. Will ask Dr. Stuart to place this. - Last dose of Eliquis was 3/3 AM on hold for now until after PPM placement. - Once PPM placed will be able to rate control more aggressively.
[2018-11-06 20:18] LABS: Hemoglobin 11.1 g/dL (12.0-16.0); Platelet Count 124 thou/uL (130-400)
[2018-11-06] MEDS: Rosuvastatin 10 MG TAB PO SCH (20:53)
[2018-11-06] MEDS: Diltiazem HCl 125 MG, Admixture Fee 1 EACH in Sodium Chloride 0.9% 100 ML IVPB SCH (21:01)
[2018-11-07] MEDS: Levothyroxine Sodium 88 MCG TAB PO SCH (06:10)
[2018-11-07] MEDS ORDERED: CEFAZOLIN 1 GM VIAL ONE (07:22)
[2018-11-07] MEDS ORDERED: Gentamicin 80 MG/2 ML VIAL ONE (07:29)
[2018-11-07] MEDS: Enoxaparin Sodium 80 MG/0.8 ML SYRINGE SC SCH ×2 (07:57→21:33)
[2018-11-07] MEDS ORDERED: Midazolam HCl 2 mg/2 ml Vial ONE (08:27)
[2018-11-07] MEDS ORDERED: Lidocaine 1% (PF) 30 ML VIAL ONE (08:39)
[2018-11-07] MEDS: Aspirin 81 mg Enteric Coated Tablet PO SCH (09:47)
--- NOTE | 2018-11-07 11:36 | RAD ---
CHEST ONE VIEW: History: Pacemaker placement. Comparison: 11-04-18 FINDINGS: Cardiac silhouette is magnified by projection. Pulmonary vasculature remains engorged. Mediastinum is midline with a dual-lead left subclavian cardiac electronic device now in place. No evidence of pneu mothorax. Hiatal hernia and mild patchy bibasilar atelectasis are again demonstrated. Soft tissue density projects over the medial aspect of the right lung apex, abutting the right upper mediastinum. pipeline technician leads overlie the chest. IMPRESSION: 1. New dual-lead left subclavian cardiac electronic device without evidence of complication. 2. Increasing soft tissue density at the medial aspect of the right lung apex. Please consider uprigh t PA and lateral views of the chest when patient can undergo that exam for better evaluation. 3. Hiatal hernia. Code T POS: CARMELITA
--- NOTE | 2018-11-07 15:02 | PRG ---
DATE OF SERVICE: 11/07/2018 SUBJECTIVE: The patient is seen and examined at the bedside and she just came back from her pacemaker placement team. She does not have much complaints to offer. On the monitoring, she is still in atrial fibrillation with occasional spikes of pacemaker when the rate gets below 100. OBJECTIVE: VITAL SIGNS: Blood pressure is 125/65, pulse is 76, temperature is 97.4, respiratory rate is 16, and O2 saturation is 97% on nasal cannula. HEENT: Head is atraumatic and normocephalic. She is legally blind. Oral mucosa is moist. NECK: Supple. LUNGS: Clear. CHEST: The left upper chest shows status post pacemaker with some swelling around the area. No erythema, though. HEART: S1 and S2, irregularly irregular. No S3. No S4. ABDOMEN: Soft, nontender. Bowel sounds are present. No organomegaly. EXTREMITIES: No clubbing, cyanosis, or edema. NEUROLOGIC: She is following my commands. She is moving her all 4 extremities. There is no any motor deficit. LABORATORY DATA: Labs showed glycemia from 92 to 134. IMPRESSION: 1. Syncope. 2. Atrial fibrillation with rapid ventricular response, rate controlled. 3. Tachy-boyd syndrome. 4. Bradycardia while on AV node blocking agents. 5. Uncontrolled hypertension with hypotensive episodes. 6. Hyperlipidemia. 7. Diabetes mellitus. 8. Renal insufficiency, improved. 9. Normocytic anemia with stable hemoglobin. Fecal occult blood test pending. 10. Hypothyroidism. DISCUSSION: The patient just received her pacer. She is still on Cardizem drip for rate control. Radiation Protection Technician is going to make decision about her anticoagulation. For now, we will continue her Crestor, Lopressor, Synthroid, and aspirin. Job ID: [id number]
--- NOTE | 2018-11-07 16:32 | EKG ---
Test Reason : POST PACEMAKER INSER Blood Pressure : / mmHG Vent. Rate : 077 BPM Atrial Rate : 068 BPM P-R Int : 000 ms QRS Dur : 084 ms QT Int : 374 ms P-R-T Axes : 000 005 -05 degrees QTc Int : 423 ms Atrial fibrillation Low voltage QRS Abnormal ECG Confirmed by GENA AVERY ([id number]) on 11/07/2018 4:32:22 PM Referred By: PEDRO Confirmed By:GENA AVERY
[2018-11-07] MEDS: Acetaminophen/Codeine 30-300mg Tablet PO PRN (17:57)
[2018-11-07] MEDS: Rosuvastatin 10 MG TAB PO SCH (21:34)
[2018-11-07] MEDS: Metoprolol Tartrate 25 MG TAB PO SCH (21:34)
[2018-11-08] MEDS: Acetaminophen/Codeine 30-300mg Tablet PO PRN ×2 (00:14→06:27)
[2018-11-08] MEDS ORDERED: CEFAZOLIN 2 GM in Premix Bag 1 BAG IVPB SCH (01:30)
[2018-11-08] MEDS: Levothyroxine Sodium 88 MCG TAB PO SCH (06:14)
[2018-11-08] MEDS: Metoprolol Tartrate 25 MG TAB PO SCH ×2 (08:16→20:14)
[2018-11-08] MEDS: Aspirin 81 mg Enteric Coated Tablet PO SCH (08:16)
[2018-11-08] MEDS: Enoxaparin Sodium 80 MG/0.8 ML SYRINGE SC SCH (08:16)
--- NOTE | 2018-11-08 09:46 | CCL ---
CARDIOLOGY PROCEDURE NOTE: Date: 11/07/18 PROCEDURE: Dual chamber pacemaker insertion. INDICATION FOR PROCEDURE: 73-year-old female with tachy/boyd syndrome and significant pauses with syncope. She was advised to undergo dual chamber pacemaker insertion. She also has intermittent atrial fibrillation and was advis ed to undergo atrial therapy as well as the device. PROCEDURE DETAILS: The patient was taken to the cardiac ship laborer where she underwent the procedure today without difficu lties or complications. The full dictated note can be found in the chart. She was implanted with a MR I-compatible dual chamber pacemaker from [employer] ([employer]) with two screw-in leads with fixation, on e in the atrium and one in the ventricle. Pacemaker was set with the upper rate at 120 and the lower rate was set at 60. There were no difficulties or complications encountered. She was also given 2 mg of IV Versed for conscious sedation during the procedure and throughout the procedure was monitored b y an independent observer present for heart rate, blood pressure, and O2 saturations; these all remai jeb stable.
--- NOTE | 2018-11-08 11:20 | RAD ---
EXAM: CHEST TWO VIEWS: History: Follow up right upper lung lesion. Comparison: 11-07-18, 11-04-18, and CT chest, 06-24-13 FINDINGS: Monitor leads overlie the chest. Left ICD. Moderate to large hiatal hernia. Marked arthrosis changes of both shoulders. There is some minimal increased density in the right suprahilar region, but this i s stable dating back to prior old chest radiographs and chest CT. IMPRESSION: Bilateral stable chronic lung changes. Moderate to large hiatal hernia. Atherosclerosis of the aorta with ectasia. Bilateral shoulder joint arthrosis. Increased density seen on CT of 11-07-18 is most cons istent with some superimposition of shadows as well as some vascular tortuosity. However, if there re anette strong clinical concern for the possibility of an underlying pulmonary nodule, follow up chest CT scan should be considered. POS: TPC
--- NOTE | 2018-11-08 16:36 | PDOC.CTH ---
Cardiology Progress Note - Subjective She is doing well. PPM placed yesterday and is well healed. - Objective Vital Signs Temp Pulse Resp BP BP Pulse Ox 11/08/18 15:30 97.8 F 80 17 94/60 98 11/08/18 11:30 98.2 F 71 16 104/67 98 11/08/18 07:05 98.1 F 82 16 95/66 97 Weight 151 lb 14.376 oz 11/07/18 11/08/18 11/09/18 06:59 06:59 06:59 Intake Total 1540 1412 Output Total 1300 1450 Balance 240 -38 - Physical Examination General/Neuro: alert & oriented x3, NAD Neck: no JVD present Lungs: unlabored respirations Heart: other: (Irreg) Abdomen: NT/ND Extremities: other: (no edema) - Telemetry Telemetry Rhythm: Underlying afib, V paced. - Labs Result Diagrams: 11/06/18 19:57 11/06/18 19:57 Troponin/CKMB Troponin I 0.015 ng/mL (< 0.028) 11/05/18 11:45 - Assessment/Plan 1. Syncope. 2. Tachy boyd syndrome 3. Afib RVR 4. Braycardia while on AV armando blocking agents. 5.S/P PPM placement. PLAN: - May discharge home - Will switch diltiazem to 120 mg PO daily. - Follow up in device clinic in 1 week. - Follow up in my office in 2 months. - Restart Eliquis this evening for continued anticoagulation.
--- NOTE | 2018-11-08 17:06 | EKG ---
Test Reason : Blood Pressure : / mmHG Vent. Rate : 083 BPM Atrial Rate : 075 BPM P-R Int : 000 ms QRS Dur : 082 ms QT Int : 354 ms P-R-T Axes : 000 000 012 degrees QTc Int : 415 ms Demand pacemaker; interpretation is based on intrinsic rhythm Atrial fibrillation Low voltage QRS Abnormal ECG Confirmed by GENA AVERY ([id number]) on 11/08/2018 5:06:02 PM Referred By: PEDRO Confirmed By:GENA AVERY
--- NOTE | 2018-11-08 17:51 | PRG ---
DATE OF SERVICE: 11/08/2018 SUBJECTIVE: The patient is seen and examined at the bedside. She is sitting in the chair. During my visit, her is present in the room. She does not have much complaints to offer except for some soreness in the area where the pacemaker was placed in the left upper chest. OBJECTIVE: VITAL SIGNS: Blood pressure is 94/60, temperature is 97.8, pulse is 180, respiratory rate is , and O2 saturation is 98% on room air. HEENT: She is legally blind. Her oral mucosa is moist. NECK: Supple. LUNGS: Clear. HEART: S1 and S2. Irregularly irregular. No S3. No S4. Left upper chest area with significant bulge from the pacemaker in place. The incision is healing properly. There is no any hematoma or ecchymosis. ABDOMEN: Soft and nontender. Bowel sounds are present. No organomegaly. EXTREMITIES: No clubbing, cyanosis, or edema. NEUROLOGIC: She is alert and oriented x4. There is no any motor or sensory deficit present. Cranial nerves are intact. LABORATORY DATA: Glycemia is ranging from 84 to 103. IMPRESSION: 1. Syncope. 2. Tachy-boyd syndrome. 3. Atrial fibrillation with rapid ventricular response. Currently, rate is controlled. 4. Hyperlipidemia. 5. Diabetes mellitus. 6. Renal insufficiency, improved. 7. Normocytic anemia with stable hemoglobin with fecal occult blood test pending. 8. Hypothyroidism. 9. Uncontrolled hypertension with hypotensive episodes. 10. Bradycardia while on AV node blocking agents. DISCUSSION: The patient is switched from Cardizem IV drip to p.o. Her blood pressure is running on the lower side, systolic 94. The patient was supposed to go home, but in this blood pressure low situation, I am going to keep her overnight and make sure that she can safely go home in the morning. We are going to restart her apixaban tonight, and we will continue the rest of the regimen as ordered. Job ID: [id number]
[2018-11-08] MEDS: Apixaban 5 MG TAB PO SCH (20:13)
[2018-11-08] MEDS: Rosuvastatin 10 MG TAB PO SCH (20:13)
[2018-11-08 20:18] LABS: Hemoglobin 10.6 g/dL (12.0-16.0); Platelet Count 110 thou/uL (130-400)
[2018-11-09] MEDS: Levothyroxine Sodium 88 MCG TAB PO SCH (05:32)
[2018-11-09] MEDS: Aspirin 81 mg Enteric Coated Tablet PO SCH (08:52)
[2018-11-09] MEDS: Metoprolol Tartrate 25 MG TAB PO SCH (08:52)
[2018-11-09] MEDS: Apixaban 5 MG TAB PO SCH (08:52)
[2018-11-09] MEDS ORDERED: Iopamidol 370 76% 100 ML VIAL ONE (09:49)
--- NOTE | 2018-11-09 12:53 | DIS ---
DATE OF ADMISSION: 11/04/2018 DATE OF DISCHARGE: 11/09/2018 CONSULTANTS: 1. Dr. Milo Alatorre, Pulmonary/Critical Care. 2. Dr. Arpit Hopkins, Cardiology Service. 3. Dr. Moe Correia, cardiology Service. 4. Dr. Stuart, cardiology Service. PROCEDURE: Pacemaker placement. FINAL DIAGNOSES: 1. Syncope. 2. Tachy-boyd syndrome. 3. Atrial fibrillation with rapid ventricular response. 4. Hyperlipidemia. 5. Diabetes mellitus. 6. Renal insufficiency, improved. 7. Normocytic anemia. 8. Hypothyroidism. 9. Uncontrolled hypertension with hypotensive episode. 10. Bradycardia while on AV node blocking agents. 11. Pacemaker placement. HOSPITAL COURSE: CANCELED BY DICTATOR Job ID: [id number]
--- NOTE | 2018-11-09 16:10 | CT ---
CT ANGIOGRAM NECK WITH CONTRAST: Date: 11/09/18 HISTORY: Abnormal ultrasound. COMPARISON: Ultrasound dated 11/05/18. TECHNIQUE: CT angiogram of the neck performed after the intravenous administration of contrast. 3D rendering pro vided. FINDINGS: There appears to be a large hiatal hernia. The heart size is enlarged. The lung apices are clear. There appears to be new placement of cardiac device in the left chest wall with subcutaneous emphysem a. No acute cervical spine abnormality. Vessels: Contour of the transverse aorta is normal. The vertebral artery origins are patent. The vertebral art eries are codominant. The basilar artery is patent. The origin of both common carotid arteries are patent. There is no hemodynamically significant stenos is of the right internal carotid artery, which is patent. There is medial deviation of the right inte rnal carotid artery just after the origin. The left internal carotid artery is patent. The internal carotid arteries are tortuous. IMPRESSION: 1. Patent bilateral internal carotid arteries without hemodynamically significant stenosis. 2. Possibly a partially thrombosed right internal jugular vein with concern for possible clot extens ion to the right facial vein. POS: SARITA
[2018-11-09 17:11] VITALS: BP 128/80; TEMP 98.1
--- NOTE | 2018-11-10 07:07 | DIS ---
DATE OF ADMISSION: 11/04/2018 DATE OF DISCHARGE: 11/09/2018 CONSULTANTS: 1. Dr. Milo Alatorre, Pulmonary Service. 2. Dr. Arpit Hopkins, Cardiovascular Service. 3. Dr. Moe Correia, Cardiovascular Surgeon. 4. Dr. Gena Stuart, Cardiology Service. PROCEDURE: Pacer placement by Dr. Stuart at 11/07/2018. IMAGIN. 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 2. Echocardiogram showed ejection fraction of the left ventricle estimated at 50% to 55% with moderate mitral regurgitation and [id number] tricuspid regurgitation. 3. Chest x-ray: a. New dual lead left subclavian cardiac electronic device without evidence of complication. b. Increased soft tissue density at the medial aspect of the right lung apex. c. Hiatal hernia. 4. CT angiography of the neck showed: a. Patent bilateral internal carotid arteries without hemodynamically significant stenosis. b. Possibly a partially thrombosed right internal jugular vein with concern for possible clot extension to the right facial vein. FINAL DIAGNOSES: 1. Recurrent syncope. 2. Tachy-boyd syndrome. 3. Atrial fibrillation with rapid ventricular response, currently rate controlled. 4. Hyperlipidemia. 5. Diabetes mellitus. 6. Renal insufficiency, improved. 7. Normocytic anemia with stable hemoglobin. 8. Hypothyroidism. 9. Uncontrolled hypertension with hypotensive episodes. 10. Bradycardia while on AV node blocking agents. 11. Possible clot of the right internal jugular vein with possible clot extension to the right facial vein. HOSPITAL COURSE: The patient is a 73-year-old female, who was admitted to the hospital after she had syncopal episode. It came all of a sudden without any clear triggers. She lost consciousness for approximately 10 minutes. This is the second time this has happened to her. She was found to be in atrial fibrillation with RVR when she was evaluated in the emergency room. Cardizem drip was started to control her ventricular rate. At the time of admission to the hospital, her blood pressure was 94/61, heart rate was 135, respiratory rate was 18, and temperature was 98. Her pulse oximetry was 98% on room air. EKG showed atrial fibrillation with RVR with ventricular rate of 133. Chest x-ray did not show any acute intrathoracic abnormalities. Her white count was 12, hemoglobin 12.5. Chemistry was within normal limits with mild elevation of creatinine at 1.22. Troponin was negative, beta natriuretic peptide was up to 395. Urinalysis was negative. The patient was admitted to telemetry floor. Her Cardizem drip was continued. Cardiology consult was requested. The patient was seen by Dr. Hopkins for Cardiology consultation, who recommended pacemaker placement. Her Eliquis was discontinued and she was placed on Lovenox for possible pacer placement. Also, she was seen by Dr. Alatorre for Pulmonary/Critical Care evaluation, who recommended to control the rate at home. The patient was euvolemic and he recommended to be off any Lasix. The patient underwent echocardiogram, which showed LVEF estimated at 50% to 55%. with moderate mitral regurgitation and [id number] tricuspid regurgitation. Subsequently, Dr. Stuart put the pacemaker dual-chamber and she underwent additional testing on her carotid arteries since the ultrasound of the carotid arteries showed possible significant stenosis in her right artery, but CT angiogram was done and it showed patent both sides arterial structures, but possible partially thrombosed right internal jugular vein with concern for possible clot extension to the right facial vein. The patient is doing fine clinically. She is not showing any distress. Her blood pressure is 121/71, pulse is 90, temperature is 97.5, respiratory rate is 18, and O2 saturation is 97% on room air. She was seen and examined before she was discharged home. DISPOSITION: Home. ACTIVITIES: She will have post pacer placement. Activities limited per protocol. She will stay on 2000 calories ADA diet. FOLLOWUP: She will see Dr. Stuart in 1 week to follow up on the pacemaker and she will see Dr. 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 MEDICATIONS: She is discharged on are: 1. Aspirin 81 mg once daily. 2. Diltiazem 120 mg once daily. 3. Metoprolol 25 mg twice daily. 4. Crestor 10 mg once daily. 5. Apixaban 5 mg twice daily. 6. Atorvastatin 10 mg daily. 7. Levothyroxine 88 mcg p.o. daily. TIME SPENT: On this discharge is more than 30 minutes. Job ID: [id number]
== END 2018-11-09 17:10 | disposition home or self-care (01) | DRG 242 ==
LOC: ERS 16:59 → ERHOLD 19:05 → 2NO 11-05 00:15 → IMCU/EMU 11-05 00:19 → 2NO 11-05 17:01
PROVIDERS: ADMIT Hospitalist; ATTEND Hospitalist
PROC: 0JH606Z Insertion of Pacemaker, Dual Chamber into Chest Subcutaneous Tissue and Fascia, Open Approach (ICD-10-PCS; principal; 2018-11-04)
PROC: 02HK3JZ Insertion of Pacemaker Lead into Right Ventricle, Percutaneous Approach (ICD-10-PCS; 2018-11-04)
PROC: 02H63JZ Insertion of Pacemaker Lead into Right Atrium, Percutaneous Approach (ICD-10-PCS; 2018-11-04)
DX: I48.0 Paroxysmal atrial fibrillation (principal); J96.01 Acute respiratory failure with hypoxia; I49.5 Sick sinus syndrome; I10 Essential (primary) hypertension; E78.5 Hyperlipidemia, unspecified; H54.8 Legal blindness, as defined in USA; D64.9 Anemia, unspecified; E03.9 Hypothyroidism, unspecified; K44.9 Diaphragmatic hernia without obstruction or gangrene; I08.1 Rheumatic disorders of both mitral and tricuspid valves; E11.65 Type 2 diabetes mellitus with hyperglycemia; I95.9 Hypotension, unspecified
CPT/HCPCS: 33208; 36415; 36416; 51701; 70498; 71045; 71046; 80048; 80053; 81003; 82565; 83690; 83880; 84484; 85014; 85018; 85025; 85049; 93005; 93010; 93306; 93798; 93880; 96360; 96361; 96365; 96366; 96376; 99152; 99153; A4353; C1785; C1898; J0690; J1580; J1650; J2001; J2250; J7050; Q0162; Q9967

== ENCOUNTER 2020-12-02 13:43 | Inpatient (IN) | payer MEDICARE ==
[2020-12-02 15:42] LABS: #Lymphocytes 0.8 thou/uL (1.20-3.40); #Monocytes 0.9 thou/uL (0.11-0.59); #Neutrophils 6.1 thou/uL (1.40-6.50); %Basophils 0.2 % (0.0-1.0); %Eosinophils 0.3 % (0.0-10.0); %Lymphocytes 10.4 % (21.0-51.0); %Monocytes 10.9 % (0.0-10.0); %Neutrophils 78.2 % (42.0-75.0); Hemoglobin 4.4 g/dL (12.0-16.0); Mean Corpuscular HGB CONC 27.6 g/dL (32.0-36.0); Mean Corpuscular Hemoglobin 19.8 pg (27.0-31.0); Mean Corpuscular Volume 71.6 fL (78.0-98.0); Mean Platelet Volume 10.1 fL (7.4-10.4); Platelet Count 215 thou/uL (130-400); RBC Distribution Width 21.9 % (11.5-14.5); Red Blood Cell (RBC) Count 2.23 mill/uL (4.20-5.40); White Blood Cell (WBC) Count 7.8 thou/uL (4.8-10.8)
[2020-12-02 15:59] LABS: Anisocytosis SLIGHT = 6-15 cells (100X) (0-5/hpf); Hypochromia MODERATE=16-30 cells (100X) (0-5/hpf); MDiff Complete? YES; Microcytosis SLIGHT = 6-15 cells (100X) (0-5/hpf); Platelet Morphology Comment Appears Adequate; Polychromasia SLIGHT = 2-3 cells (100X) (0-2/hpf); Reflex for Review?? YES; Schistocytes SLIGHT = 2-5 cells (100X) (0-1/hpf); Target Cells SLIGHT = 2-5 cells (100X) (0-1/hpf); Tear Drops SLIGHT = 2-5 cells (100X) (0-1/hpf)
[2020-12-02 16:03] LABS: ALT (SGPT) 45 U/L (8-55); AST (SGOT) 84 U/L (5-34); Albumin 2.5 g/dL (3.4-4.8); Alkaline Phosphatase 123 U/L (40-110); Anion Gap 14 mmol/L (10-20); BUN (Urea Nitrogen) 23 mg/dL (9.8-20.1); Bilirubin, Total 1.6 mg/dL (0.2-1.2); Calc. Creatinine Clearance 0 mL/min (70-130); Calcium 7.4 mg/dL (7.8-10.44); Carbon Dioxide 23 mmol/L (23-31); Chloride 103 mmol/L (98-107); Globulin 3.1 g/dL (2.4-3.5); Glucose 109 mg/dL (83-110); Protein, Total 5.6 g/dL (5.8-8.1); Sodium 137 mmol/L (136-145)
[2020-12-02 16:09] LABS: Potassium 2.9 mmol/L (3.5-5.1)
[2020-12-02 16:10] LABS: Prothrombin Time 60.9 sec (12.0-14.7)
[2020-12-02 16:12] LABS: INR-International Normal Ratio 6.8; PTT 55.7 sec (22.9-36.1)
[2020-12-02 16:22] LABS: CKMB 2.1 ng/mL (0-6.6)
[2020-12-02 16:54] LABS: Bilirubin Negative (Negative); Blood, Urine Trace (Negative); Clarity Turbid (Clear); Glucose, Urine (Dipstick) Normal (Negative); Ketone, Urine Negative (Negative); Leukocyte 500 Leu/uL (Negative); Nitrite Negative (Negative); Protein, Urine (Dipstick) 50 mg/dL (Neg-Trace); RBC/HPF 0-3 HPF (0-3); Specific Gravity, Urine 1.015 (1.002-1.036); Squamous Epithelial None Seen HPF (0-3); Urobilinogen 3 mg/dL (Less than 2); WBC/HPF Greater than 50 HPF (0-3); pH, Urine 5.5 (5.0-9.0)
[2020-12-02 16:55] LABS: Bacteria/HPF 3+ HPF (None Seen)
[2020-12-02] MEDS ORDERED: Magnesium 2 GM/50 ML BAG (IN WATER) ONE (17:02)
[2020-12-02] MEDS ORDERED: Potassium Chloride 20 MEQ TAB ONE (17:02)
[2020-12-02] MEDS ORDERED: cefTRIAXone\\ROCEPHIN 1 GM VIAL ONE (17:26)
[2020-12-02] MEDS ORDERED: [UNRECOGNIZED DRUG - OTHER] IV SCH (17:30)
[2020-12-02] MEDS ORDERED: ADMIXTURE FEE IV SCH (17:30)
[2020-12-02] MEDS ORDERED: HUM PROTHROMBIN CPLX IV SCH (17:30)
[2020-12-02] MEDS ORDERED: Furosemide 20 MG/2 ML VIAL SLOW IVP PRN (17:35)
[2020-12-02] MEDS ORDERED: Pantoprazole 40 MG VIAL IVP SCH (17:45)
[2020-12-02 18:40] LABS: Troponin I 0.053 ng/mL (< 0.028)
[2020-12-02 20:26] LABS: Fibrinogen 212 mg/dL (253-463)
[2020-12-02 20:27] LABS: #Monocytes 0.9 thou/uL (0.11-0.59); #Neutrophils 6.1 thou/uL (1.40-6.50); %Basophils 0.1 % (0.0-1.0); %Eosinophils 0.1 % (0.0-10.0); %Lymphocytes 12.2 % (21.0-51.0); %Monocytes 11.6 % (0.0-10.0); Hemoglobin 7.8 g/dL (12.0-16.0); Mean Corpuscular Hemoglobin 23.7 pg (27.0-31.0); Mean Corpuscular Volume 78.9 fL (78.0-98.0); Mean Platelet Volume 10.4 fL (7.4-10.4); Platelet Count 176 thou/uL (130-400); RBC Distribution Width 21.3 % (11.5-14.5); Red Blood Cell (RBC) Count 3.31 mill/uL (4.20-5.40); White Blood Cell (WBC) Count 8.1 thou/uL (4.8-10.8)
[2020-12-02 20:38] LABS: Iron 26 ug/dL (50-170); Iron Binding Capacity, Total 378 mcg/dL (265-497); Reticulocyte Count 2.8 % (0.5-1.5)
[2020-12-02 20:50] LABS: FSP-Qualitative ABNORMAL (Normal); FSP-Semiquantitative >=5 & <20 mcg/mL (Less than 5)
[2020-12-02] MEDS: Potassium Chloride 20 MEQ in Premix Bag 1 BAG IVPB SCH ×2 (21:10→23:21)
[2020-12-02 22:20] LABS: Troponin I 0.046 ng/mL (< 0.028)
[2020-12-03 00:55] LABS: #Lymphocytes 1.1 thou/uL (1.20-3.40); #Monocytes 0.9 thou/uL (0.11-0.59); #Neutrophils 6.5 thou/uL (1.40-6.50); %Basophils 0.2 % (0.0-1.0); %Eosinophils 0.2 % (0.0-10.0); %Lymphocytes 13.1 % (21.0-51.0); %Monocytes 10.6 % (0.0-10.0); %Neutrophils 75.8 % (42.0-75.0); Anisocytosis SLIGHT = 6-15 cells (100X) (0-5/hpf); Hemoglobin 7.2 g/dL (12.0-16.0); MDiff Complete? YES; Mean Corpuscular HGB CONC 31.1 g/dL (32.0-36.0); Mean Corpuscular Hemoglobin 24.2 pg (27.0-31.0); Mean Corpuscular Volume 77.9 fL (78.0-98.0); Mean Platelet Volume 10.6 fL (7.4-10.4); Platelet Count 175 thou/uL (130-400); RBC Distribution Width 20.8 % (11.5-14.5); Red Blood Cell (RBC) Count 2.97 mill/uL (4.20-5.40); White Blood Cell (WBC) Count 8.5 thou/uL (4.8-10.8)
[2020-12-03 06:28] LABS: Anion Gap 11 mmol/L (10-20); BUN (Urea Nitrogen) 23 mg/dL (9.8-20.1); Calc. Creatinine Clearance 39 mL/min (70-130); Calcium 7.3 mg/dL (7.8-10.44); Carbon Dioxide 23 mmol/L (23-31); Chloride 106 mmol/L (98-107); Glucose 72 mg/dL (83-110); Potassium 3.7 mmol/L (3.5-5.1); Sodium 136 mmol/L (136-145)
[2020-12-03 07:46] LABS: Band 11 % (5-11); Eosinophils 1 % (0-10); Hypochromia MODERATE=16-30 cells (100X) (0-5/hpf); Lymphocytes 18 % (21-51); MDiff Complete? YES; Mean Corpuscular HGB CONC 30.3 g/dL (32.0-36.0); Mean Corpuscular Hemoglobin 23.5 pg (27.0-31.0); Mean Corpuscular Volume 77.7 fL (78.0-98.0); Mean Platelet Volume 10.3 fL (7.4-10.4); Microcytosis SLIGHT = 6-15 cells (100X) (0-5/hpf); Monocytes 8 % (0-10); Neutrophil 60 % (42-75); Nucleated RBC 2 % (0); Platelet Count 169 thou/uL (130-400); Platelet Morphology Comment Appears Adequate; Polychromasia MODERATE = 3-4 cells (100X) (0-2/hpf); Reactive Lymphocytes 1 % (0-10); Red Blood Cell (RBC) Count 2.97 mill/uL (4.20-5.40)
[2020-12-03] MEDS: Pantoprazole 40 MG VIAL IVP SCH ×2 (07:56→20:11)
[2020-12-03 09:03] LABS: SARS-CoV-2 PCR by NAA Not Detected (NotDetected)
[2020-12-03 10:16] LABS: Hemoglobin 7.5 g/dL (12.0-16.0); Platelet Count 170 thou/uL (130-400)
[2020-12-03] MEDS ORDERED: Dextrose 50% Abboject 50 ML SYRINGE SLOW IVP PRN (10:23)
[2020-12-03] MEDS ORDERED: HumaLOG 300 UNITS/3 ML VIAL SC PRN ×2 (10:23)
[2020-12-03] MEDS ORDERED: Dextrose 5% in Water 1,000 ML IV PRN (10:23)
[2020-12-03 10:36] LABS: INR-International Normal Ratio 2.6; PTT 46.3 sec (22.9-36.1); Prothrombin Time 28.5 sec (12.0-14.7)
[2020-12-03 11:20] LABS: #Lymphocytes 1.3 thou/uL (1.20-3.40); #Neutrophils 6.6 thou/uL (1.40-6.50); %Basophils 0.5 % (0.0-1.0); %Eosinophils 0.5 % (0.0-10.0); %Lymphocytes 14.7 % (21.0-51.0); %Monocytes 10.8 % (0.0-10.0); %Neutrophils 73.6 % (42.0-75.0); Anisocytosis SLIGHT = 6-15 cells (100X) (0-5/hpf); Hemoglobin 7.6 g/dL (12.0-16.0); Hypochromia MODERATE=16-30 cells (100X) (0-5/hpf); MDiff Complete? YES; Mean Corpuscular HGB CONC 29.5 g/dL (32.0-36.0); Mean Corpuscular Hemoglobin 23.3 pg (27.0-31.0); Mean Corpuscular Volume 78.8 fL (78.0-98.0); Mean Platelet Volume 10.4 fL (7.4-10.4); Microcytosis MODERATE=15-30 cells (100X) (0-5/hpf); Ovalocytes SLIGHT = 2-5 cells (100X) (0-1/hpf); Platelet Count 167 thou/uL (130-400); Platelet Morphology Comment Appears Adequate; Polychromasia SLIGHT = 2-3 cells (100X) (0-2/hpf); Red Blood Cell (RBC) Count 3.26 mill/uL (4.20-5.40); Schistocytes SLIGHT = 2-5 cells (100X) (0-1/hpf); White Blood Cell (WBC) Count 8.9 thou/uL (4.8-10.8)
[2020-12-03] MEDS: Dextrose 5 % And 0.9 % NaCl 1,000 ML IV SCH (12:08)
[2020-12-03 13:43] LABS: Hemoglobin 7.1 g/dL (12.0-16.0); Platelet Count 159 thou/uL (130-400)
[2020-12-03 17:37] LABS: Hemoglobin 7.3 g/dL (12.0-16.0); Platelet Count 158 thou/uL (130-400)
[2020-12-04] MEDS: Dextrose 5 % And 0.9 % NaCl 1,000 ML IV SCH ×2 (01:49→17:05)
[2020-12-04 04:05] LABS: Prothrombin Time 23.5 sec (12.0-14.7)
[2020-12-04 04:21] LABS: Anion Gap 10 mmol/L (10-20); BUN (Urea Nitrogen) 18 mg/dL (9.8-20.1); Calc. Creatinine Clearance 39 mL/min (70-130); Calcium 7.5 mg/dL (7.8-10.44); Carbon Dioxide 22 mmol/L (23-31); Chloride 106 mmol/L (98-107); Glucose 123 mg/dL (83-110); Potassium 3.3 mmol/L (3.5-5.1); Sodium 135 mmol/L (136-145)
[2020-12-04 07:12] LABS: Hemoglobin 7.6 g/dL (12.0-16.0)
[2020-12-04] MEDS: Pantoprazole 40 MG VIAL IVP SCH ×2 (09:12→22:22)
[2020-12-04] MEDS: cefTRIAXone\\ROCEPHIN 1 GM in Sodium Chloride 0.9% 100 ML IVPB SCH (09:12)
[2020-12-04] MEDS ORDERED: GoLYTELY 4,000 ml Bottle PO SCH (16:00)
[2020-12-05 04:02] LABS: INR-International Normal Ratio 1.8; PTT 41.4 sec (22.9-36.1); Prothrombin Time 20.8 sec (12.0-14.7)
[2020-12-05 04:06] LABS: Hemoglobin 7.3 g/dL (12.0-16.0); Mean Corpuscular HGB CONC 29.9 g/dL (32.0-36.0); Mean Corpuscular Hemoglobin 23.8 pg (27.0-31.0); Mean Corpuscular Volume 79.5 fL (78.0-98.0); Mean Platelet Volume 11.7 fL (7.4-10.4); Platelet Count 131 thou/uL (130-400); RBC Distribution Width 21.8 % (11.5-14.5); Red Blood Cell (RBC) Count 3.08 mill/uL (4.20-5.40); White Blood Cell (WBC) Count 6.3 thou/uL (4.8-10.8)
[2020-12-05 04:18] LABS: Anion Gap 14 mmol/L (10-20); BUN (Urea Nitrogen) 14 mg/dL (9.8-20.1); Calc. Creatinine Clearance 47 mL/min (70-130); Calcium 7.5 mg/dL (7.8-10.44); Carbon Dioxide 17 mmol/L (23-31); Chloride 107 mmol/L (98-107); Glucose 105 mg/dL (83-110); Sodium 135 mmol/L (136-145)
[2020-12-05 04:28] LABS: Potassium 2.9 mmol/L (3.5-5.1)
[2020-12-05] MEDS ORDERED: Electrolyte Replacement Protocol 1 EACH FS PRN (04:45)
[2020-12-05 04:55] LABS: Lymphocytes 20 % (21-51); MDiff Complete? YES; Metamyelocyte 1 % (0-0); Monocytes 5 % (0-10); Neutrophil 74 % (42-75); Nucleated RBC 3 % (0); Platelet Morphology Comment Appears Adequate
[2020-12-05] MEDS: Potassium Chloride 20 MEQ in Premix Bag 1 BAG IVPB SCH ×2 (05:31→11:48)
[2020-12-05] MEDS ORDERED: Magnesium 2 GM/50 ML 2 GM in Premix Bag 1 BAG IVPB SCH (07:30)
[2020-12-05] MEDS: cefTRIAXone\\ROCEPHIN 1 GM in Sodium Chloride 0.9% 100 ML IVPB SCH (08:36)
[2020-12-05] MEDS: Pantoprazole 40 MG VIAL IVP SCH (08:42)
[2020-12-05] MEDS ORDERED: Ketamine 50 MG/ML (10ML VIAL) ONE (10:12)
[2020-12-05] MEDS ORDERED: Midazolam HCl 2 mg/2 ml Vial ONE (10:12)
[2020-12-05] MEDS ORDERED: PROPOFOL 200 MG/20 ML VIAL ONE (10:32)
[2020-12-05] MEDS ORDERED: Promethazine HCl 25 MG/ML VIAL IM PRN (11:03)
[2020-12-05] MEDS ORDERED: Promethazine HCl 25 MG/ML VIAL SLOW IVP PRN (11:03)
[2020-12-05] MEDS ORDERED: Ondansetron HCl/PF 4 MG/2 ML Vial IVP PRN (11:03)
[2020-12-05] MEDS: Dextrose 5 % And 0.9 % NaCl 1,000 ML IV SCH (11:44)
[2020-12-05] MEDS ORDERED: Sodium Chloride 0.9% 500 ML IV SCH (18:00)
[2020-12-06 03:57] LABS: #Eosinphils 0.3 thou/uL (0.0-0.7); #Lymphocytes 1.6 thou/uL (1.20-3.40); #Monocytes 0.7 thou/uL (0.11-0.59); #Neutrophils 3.8 thou/uL (1.40-6.50); %Basophils 0.5 % (0.0-1.0); %Eosinophils 4.2 % (0.0-10.0); %Lymphocytes 25.5 % (21.0-51.0); %Monocytes 10.7 % (0.0-10.0); %Neutrophils 59.1 % (42.0-75.0); Hemoglobin 7.4 g/dL (12.0-16.0); MDiff Complete? YES; Mean Corpuscular HGB CONC 30.3 g/dL (32.0-36.0); Mean Corpuscular Hemoglobin 24.2 pg (27.0-31.0); Mean Corpuscular Volume 79.8 fL (78.0-98.0); Mean Platelet Volume 11.8 fL (7.4-10.4); Platelet Count 129 thou/uL (130-400); Platelet Morphology Comment Appears Adequate; RBC Distribution Width 22.2 % (11.5-14.5); Red Blood Cell (RBC) Count 3.04 mill/uL (4.20-5.40); Target Cells SLIGHT = 2-5 cells (100X) (0-1/hpf); White Blood Cell (WBC) Count 6.4 thou/uL (4.8-10.8)
[2020-12-06 04:01] LABS: Anion Gap 10 mmol/L (10-20); BUN (Urea Nitrogen) 12 mg/dL (9.8-20.1); Calc. Creatinine Clearance 53 mL/min (70-130); Calcium 7.4 mg/dL (7.8-10.44); Carbon Dioxide 19 mmol/L (23-31); Chloride 111 mmol/L (98-107); Glucose 106 mg/dL (83-110); Magnesium 2.1 mg/dL (1.6-2.6); Potassium 3.3 mmol/L (3.5-5.1); Sodium 137 mmol/L (136-145)
[2020-12-06] MEDS: Dextrose 5 % And 0.9 % NaCl 1,000 ML IV SCH ×3 (05:28→18:56)
[2020-12-06] MEDS: Potassium Chloride 20 MEQ in Premix Bag 1 BAG IVPB SCH ×2 (09:31→11:35)
[2020-12-06] MEDS: cefTRIAXone\\ROCEPHIN 1 GM in Sodium Chloride 0.9% 100 ML IVPB SCH (09:31)
[2020-12-06] MEDS: traMADol HCl 50 MG TAB PO PRN (16:30)
[2020-12-07] MEDS: Dextrose 5 % And 0.9 % NaCl 1,000 ML IV SCH (05:05)
[2020-12-07 05:27] LABS: Anion Gap 13 mmol/L (10-20); BUN (Urea Nitrogen) 11 mg/dL (9.8-20.1); Calc. Creatinine Clearance 56 mL/min (70-130); Calcium 7.1 mg/dL (7.8-10.44); Carbon Dioxide 14 mmol/L (23-31); Chloride 110 mmol/L (98-107); Glucose 124 mg/dL (83-110); Potassium 4.4 mmol/L (3.5-5.1); Sodium 133 mmol/L (136-145)
[2020-12-07] MEDS: Levothyroxine Sodium 88 MCG TAB PO SCH (05:47)
[2020-12-07 08:56] LABS: Hemoglobin 7.7 g/dL (12.0-16.0); Mean Corpuscular Hemoglobin 23.3 pg (27.0-31.0); Mean Corpuscular Volume 79.8 fL (78.0-98.0); Red Blood Cell (RBC) Count 3.32 mill/uL (4.20-5.40)
[2020-12-07 09:07] LABS: Anisocytosis SLIGHT = 6-15 cells (100X) (0-5/hpf); Hypochromia SLIGHT = 6-15 cells (100X) (0-5/hpf); Lymphocytes 7 % (21-51); MDiff Complete? YES; Mean Corpuscular HGB CONC 29.2 g/dL (32.0-36.0); Monocytes 15 % (0-10); Neutrophil 78 % (42-75); Platelet Morphology Comment PLT clumps seen-ADEQ; RBC Distribution Width 22.8 % (11.5-14.5)
[2020-12-07] MEDS: Rosuvastatin 10 MG TAB PO SCH (10:30)
[2020-12-07] MEDS: cefTRIAXone\\ROCEPHIN 1 GM in Sodium Chloride 0.9% 100 ML IVPB SCH (10:30)
[2020-12-07] MEDS: Digoxin 0.5 MG/2 ML AMP SLOW IVP SCH ×2 (15:16→21:18)
[2020-12-07] MEDS ORDERED: Sodium Bicarbonate 150 MEQ in Dextrose 5% in Water 1,000 ML IV SCH ×2 (17:00)
[2020-12-07] MEDS ORDERED: Digoxin 0.5 MG/2 ML AMP SLOW IVP SCH (18:00)
[2020-12-07 20:50] LABS: INR-International Normal Ratio 1.6; Prothrombin Time 19.2 sec (12.0-14.7)
[2020-12-07] MEDS: traMADol HCl 50 MG TAB PO PRN (21:21)
[2020-12-08] MEDS: Digoxin 0.5 MG/2 ML AMP SLOW IVP SCH ×2 (03:40→10:03)
[2020-12-08] MEDS: Levothyroxine Sodium 88 MCG TAB PO SCH (05:38)
[2020-12-08 05:43] LABS: Hemoglobin 6.6 g/dL (12.0-16.0); Platelet Count 101 thou/uL (130-400)
[2020-12-08 06:02] LABS: Anion Gap 9 mmol/L (10-20); BUN (Urea Nitrogen) 12 mg/dL (9.8-20.1); Calc. Creatinine Clearance 64 mL/min (70-130); Carbon Dioxide 23 mmol/L (23-31); Chloride 106 mmol/L (98-107); Glucose 95 mg/dL (83-110); Potassium 3.9 mmol/L (3.5-5.1); Sodium 134 mmol/L (136-145)
[2020-12-08] MEDS ORDERED: Iron, Sodium Ferric Gluconate 250 MG in Sodium Chloride 0.9% 100 ML IVPB SCH (08:45)
[2020-12-08] MEDS: cefTRIAXone\\ROCEPHIN 1 GM in Sodium Chloride 0.9% 100 ML IVPB SCH (09:05)
[2020-12-08] MEDS: Rosuvastatin 10 MG TAB PO SCH (10:21)
[2020-12-08] MEDS: Carvedilol 3.125 MG TAB PO SCH (17:12)
[2020-12-09 04:55] LABS: Hemoglobin 8.7 g/dL (12.0-16.0); Platelet Count 95 thou/uL (130-400)
[2020-12-09 04:59] LABS: Anion Gap 11 mmol/L (10-20); BUN (Urea Nitrogen) 13 mg/dL (9.8-20.1); Calc. Creatinine Clearance 71 mL/min (70-130); Carbon Dioxide 19 mmol/L (23-31); Chloride 106 mmol/L (98-107); Glucose 69 mg/dL (83-110); Potassium 3.7 mmol/L (3.5-5.1); Sodium 132 mmol/L (136-145)
[2020-12-09] MEDS: Levothyroxine Sodium 88 MCG TAB PO SCH (05:33)
[2020-12-09] MEDS: Carvedilol 3.125 MG TAB PO SCH ×2 (08:58→17:21)
[2020-12-09] MEDS: Digoxin 0.5 MG/2 ML AMP SLOW IVP SCH (08:59)
[2020-12-09] MEDS: Rosuvastatin 10 MG TAB PO SCH (08:59)
[2020-12-09] MEDS: cefTRIAXone\\ROCEPHIN 1 GM in Sodium Chloride 0.9% 100 ML IVPB SCH (09:00)
[2020-12-09] MEDS ORDERED: Furosemide 20 MG/2 ML VIAL SLOW IVP SCH (10:00)
[2020-12-09] MEDS: traMADol HCl 50 MG TAB PO PRN (11:41)
[2020-12-09 12:24] LABS: Hemoglobin 9.5 g/dL (12.0-16.0); Platelet Count 104 thou/uL (130-400)
[2020-12-09] MEDS: Sodium Bicarbonate Tab 325 MG TAB PO SCH (21:35)
[2020-12-10 04:51] LABS: Hemoglobin 9.6 g/dL (12.0-16.0); Platelet Count 98 thou/uL (130-400)
[2020-12-10 05:10] LABS: Anion Gap 10 mmol/L (10-20); BUN (Urea Nitrogen) 13 mg/dL (9.8-20.1); Calc. Creatinine Clearance 70 mL/min (70-130); Calcium 7.2 mg/dL (7.8-10.44); Carbon Dioxide 24 mmol/L (23-31); Chloride 106 mmol/L (98-107); Glucose 81 mg/dL (83-110); Potassium 3.6 mmol/L (3.5-5.1); Sodium 136 mmol/L (136-145)
[2020-12-10] MEDS: Levothyroxine Sodium 88 MCG TAB PO SCH (07:10)
[2020-12-10] MEDS: Carvedilol 3.125 MG TAB PO SCH ×2 (08:49→18:38)
[2020-12-10] MEDS: Sodium Bicarbonate Tab 325 MG TAB PO SCH ×2 (08:51→21:20)
[2020-12-10] MEDS: Rosuvastatin 10 MG TAB PO SCH (08:51)
[2020-12-10] MEDS: Digoxin 0.5 MG/2 ML AMP SLOW IVP SCH (08:52)
[2020-12-10] MEDS: cefTRIAXone\\ROCEPHIN 1 GM in Sodium Chloride 0.9% 100 ML IVPB SCH (08:56)
[2020-12-10] MEDS ORDERED: Furosemide 20 MG/2 ML VIAL SLOW IVP SCH (09:00)
[2020-12-10] MEDS: traMADol HCl 50 MG TAB PO PRN (21:20)
[2020-12-11] MEDS: Levothyroxine Sodium 88 MCG TAB PO SCH (05:50)
[2020-12-11] MEDS: Rosuvastatin 10 MG TAB PO SCH (09:18)
[2020-12-11] MEDS: Sodium Bicarbonate Tab 325 MG TAB PO SCH (09:19)
[2020-12-11] MEDS: Carvedilol 3.125 MG TAB PO SCH ×2 (09:19→17:51)
[2020-12-11] MEDS: Digoxin 0.125 MG TAB PO SCH (09:19)
[2020-12-11] MEDS: Furosemide 20 MG TAB PO SCH (09:19)
[2020-12-11 12:34] VITALS: BMI 28.4
[2020-12-12] MEDS: Levothyroxine Sodium 88 MCG TAB PO SCH (06:07)
[2020-12-12] MEDS: Carvedilol 3.125 MG TAB PO SCH ×2 (08:44→17:09)
[2020-12-12] MEDS: Rosuvastatin 10 MG TAB PO SCH (08:45)
[2020-12-12] MEDS: Digoxin 0.125 MG TAB PO SCH (08:45)
[2020-12-12] MEDS: Furosemide 20 MG TAB PO SCH (08:45)
[2020-12-12] MEDS ORDERED: Lisinopril 2.5 MG TAB PO SCH (09:00)
[2020-12-12 16:38] VITALS: BP 128/60; TEMP 98
== END 2020-12-12 17:10 | disposition home or self-care (01) | DRG 377 ==
LOC: ERS 13:43 → IMCU/EMU 17:07 → 2NO 12-07 18:43
PROVIDERS: ADMIT Internal Medicine; ATTEND Family Medicine
PROC: 30233N1 Transfusion of Nonautologous Red Blood Cells into Peripheral Vein, Percutaneous Approach (ICD-10-PCS; principal; 2020-12-02)
PROC: 30283B1 Transfusion of Nonautologous 4-Factor Prothrombin Complex Concentrate into Vein, Percutaneous Approach (ICD-10-PCS; 2020-12-02)
PROC: 0DJ08ZZ Inspection of Upper Intestinal Tract, Via Natural or Artificial Opening Endoscopic (ICD-10-PCS; 2020-12-05)
DX: K25.4 Chronic or unspecified gastric ulcer with hemorrhage (principal); R57.8 Other shock; I50.23 Acute on chronic systolic (congestive) heart failure; D62 Acute posthemorrhagic anemia; Z20.822 Contact with and (suspected) exposure to COVID-19; D68.32 Hemorrhagic disorder due to extrinsic circulating anticoagulants; F05 Delirium due to known physiological condition; N39.0 Urinary tract infection, site not specified; E87.2 Acidosis; I48.20 Chronic atrial fibrillation, unspecified; I47.2 Ventricular tachycardia; I42.0 Dilated cardiomyopathy; T45.515A Adverse effect of anticoagulants, initial encounter; B96.20 Unspecified Escherichia coli [E. coli] as the cause of diseases classified elsewhere; I11.0 Hypertensive heart disease with heart failure; I49.5 Sick sinus syndrome; I08.1 Rheumatic disorders of both mitral and tricuspid valves; K44.9 Diaphragmatic hernia without obstruction or gangrene; E78.5 Hyperlipidemia, unspecified; Z90.49 Acquired absence of other specified parts of digestive tract; Z78.1 Physical restraint status; Z95.0 Presence of cardiac pacemaker; Z90.710 Acquired absence of both cervix and uterus; Z79.899 Other long term (current) drug therapy; Z79.01 Long term (current) use of anticoagulants; Z79.890 Hormone replacement therapy; Z82.49 Family history of ischemic heart disease and other diseases of the circulatory system; Z79.82 Long term (current) use of aspirin
CPT/HCPCS: 36415; 36416; 36430; 51701; 71045; 80048; 80053; 81003; 81015; 82274; 82553; 82728; 83010; 83540; 83550; 83605; 83615; 83735; 83880; 84484; 85014; 85018; 85025; 85046; 85049; 85060; 85362; 85384; 85610; 85730; 86850; 86900; 86901; 87040; 87077; 87086; 87186; 87635; 93005; 93306; 96365; 96366; 96368; C9113; C9132; J0696; J1160; J1940; J2250; J2704; J2916; J3475; J3480; J3490; J7070; P9016; U0003; U0005